=== PATIENT | male | born 1990 | race Two or more races ===

== ENCOUNTER 2024-01-06 10:55 | Outpatient (AMB) | payer OTHER, SELFPAY ==
[2024-01-06 10:57] VITALS: BP 114/78; PULSE 79; O2SAT 100; BMI 32.1
--- NOTE | 2024-01-06 10:57 | A.OFFPC_ITS ---
Vital Signs 01/06/24 10:57 Height 5 ft 10 in Weight 224 lb BMI 32.1 BP 114/78 Blood Pressure Location Lt brachial Position Sitting Pulse 79 Pulse Source Pulse Oximeter Pulse Oximetry (%) 100 Oxygen Delivery Method Room Air Intake Visit Reasons: establish care Order Entry Clerk Required: No Allergies No Known Allergies Allergy (Verified 01/06/24 11:14) Medication List - Last Reconciled 01/06/24 by Martha Rios PA-C No Known Home Meds Tobacco use date assessed: 01/06/24 Dental Screening Dental Screen Date: 01/06/24 Did you have a dental visit in the last 12 months?: Yes Did you have a dental problem in the last 6 months where you did not have access to dental care?: No Was dental information given to patient?: Patient has dentist HPI establish care HPI Details 33-year-old male coming to the office wi th the 1st time. 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 He continues to follow with Dr. Carrillo through [place] [facility] last seen last year and scheduled to see next month. He had cardiac echo and stress test last year as part of preoperative workup after clavicle fracture. He has been having chest pain with exertion which he has been evaluated for by his district or district office director and advised not to lift over 50 lbs. He has no acute concerns today. [facility] Surgical History (Updated 01/06/24 @ 12:07 by Martha Rios PA-C) Aortic valve replaced Hx of appendectomy Social History Housing: House Patient Tobacco Use Status: Never used Tobacco service: No Current occupational status: employed Cognitive needs: No Hearing needs: No Vision needs: No Questionnaire PHQ-9 Over the last 2 weeks, how often have you been bothered by any of the following problems? 1. Little interest or pleasure in doing things: not at all 2. Feeling down, depressed, or hopeless: not at all 3. Trouble falling or staying asleep, or sleeping too much: not at all 4. Feeling tired or having little energy: several days 5. Poor appetite or overeating: not at all 6. Feeling bad about yourself - or that you are a failure or have let yourself or your family down: not at all 7. Trouble concentrating on things, such as reading the newspaper or watching television: not at all 8. Moving or speaking so slowly that other people could have noticed. Or the opposite - being so fidgety or restless that you have been moving around a lot more than usual: not at all 9. Thoughts that you would be better off or of hurting yourself in some way: not at all Total score: 1 Depression Screening Interpretation: Negative Depression Screening Done: Yes 98523 - PHQ-9 Billing: Yes Source: Developed by Drs. Keron Jacobsen, Kirsten June, Mayank Lagunas and colleagues, with an educational shady from [employer]. Thrive Questionnaire Date Thrive assessed: 01/06/24 I am a: Patient What is your living situation today?: I have a steady place to live Within the past 12 months, did the food you bought not last and you didn't have the money to get more?: I choose not to answer this question Within the past 12 months, did you worry whether your food would run out before you got money to buy more?: I choose not to answer this question Do you have trouble paying for medicines?: No Do you have trouble getting transportation to medical appointments?: No Do you have trouble paying your heating and electricity bill?: No Do you have trouble taking care of your child, family member or friend?: No Do you have trouble with day-to-day activities such as bathing, preparing meals, shopping, managing finances, etc.?: No Are you currently unemployed and looking for a job?: No Are you interested in more education?: No Please select the resources that you would like help with: None Currently or been in a relationship where the following occur: I choose not to answer THRIVE Score: 0 AUDIT C Alcohol Use Questionnaire (AUDIT-C) 1. How often do you have a drink containing alcohol?: 2-4 times a month 2. How many drinks containing alcohol do you have on a typical day when you are drinking?: 1 or 2 3. How often do you have six or more drinks on one occasion?: Never Total Score: 2 MIKAEL-7 AMB Questionnaire MIKAEL-7 Date MIKAEL - 7 assessed: 01/06/24 Feeling nervous, anxious, or on edge: 0 = Not at all Not being able to stop or control worryin = Not at all Worrying too much about different things: 0 = Not at all Trouble relaxin = Not at all Being so restless that it is hard to sit still: 0 = Not at all Becoming easily annoyed or irritable: 0 = Not at all Feeling afraid as if something awful might happen: 0 = Not at all Total MIKAEL-7 score (0-4 normal; 5-9 mild; 10-14 moderate; 15-21 severe): 0 Source: Developed by Drs. Keron Jacobsen, Kirsten June, Mayank Lagunas and colleagues, with an educational shady from [place]. MIKAEL-7 Assessment Billing MIKAEL-7 Assessment Tool: MIKAEL-7 Assessment 97214 Review of Systems Const Denies body aches, Denies fatigue, Denies fever(s), Denies frequent falls, Denies headache(s) and Denies weakness Eyes Reports no additional complaints and Denies change in vision ENT Denies dysphagia, Denies dizziness, Denies facial pain, Denies headache(s), Denies nasal congestion and Denies odynophagia Card Denies chest pain, Reports chest pain with activity (with heavy activity), Denies syncope, Denies irregular heart rhythm, Denies leg edema, Denies lightheadedness and Denies dyspnea Resp Denies cough and Denies dyspnea GI Denies abdominal pain, Denies constipation, Denies dysphagia, Denies dyspepsia, Denies diarrhea, Denies nausea, Denies odynophagia and Denies vomiting Denies dysuria, Denies urinary frequency, Denies urinary hesitancy and Denies urinary urgency Musc Denies back pain and Denies myalgias Skin/Breast Reports system reviewed and no additional complaints, except as documented Neuro Denies dizziness, Denies syncope, Denies frequent falls, Denies headache(s) and Denies weakness Psych Reports no additional complaints Endo Denies fatigue Physical exam (Primary Care) Vital Signs: Last Vital Signs Pulse 79 01/06/24 10:57 BP 114/78 01/06/24 10:57 Pulse Ox 100 01/06/24 10:57 Oxygen Delivery Method Room Air 01/06/24 10:57 BMI result Body Mass Index 32.1 Tobacco/Smoking Status: Tobacco use Status Tobacco use date assessed 01/06/24 01/06/24 10:58 Patient Tobacco Use Status Never used Tobacco 01/06/24 10:58 PHQ-9: PHQ-9 Score PHQ-9: Total score 1 01/06/24 11:17 Depression Screening Interpretation: Negative Thrive Assessment: Date of Thrive Assessment Date Thrive assessed 01/06/24 01/06/24 10:58 Currently or been in a relationship where the following occur: I choose not to answer Const General: cooperative, healthy appearing, comfortable and no acute distress Orientation/consciousness: patient oriented x3 HENMT Head: Yes normocephalic Ears: hearing grossly normal bilaterally General nose exam: Normal external nose present Face and sinus: Yes normal facial exam and Yes sinuses nontender Mouth: Normal oral and palatal mucosa present and tongue normal Throat: Yes posterior oropharynx normal Eyes General: appearance normal, both eyes and all related structures Conjunctivae: conjunctivae normal Pupils: Equal, round and reactive pupils present EOM: EOMs intact bilaterally and No Nystagmus present Neck Neck: Yes full ROM and Yes no lymphadenopathy Chest Chest palpation & inspection: normal inspection of the chest Resp Effort & Inspection: normal respiratory effort Auscultation: clear to auscultation bilaterally, no crackles, no rales, no rhonchi and no wheezes Cardio Rate: regular rate Rhythm: regular rhythm Heart sounds: Murmur heart sound present systolic Peripheral pulses: radial pulses present and dorsalis pedis present GI Inspection: Yes normal to inspection and No Abdominal wall edema Palpation (GI): Soft to palpation, not firm and nontender Auscultation: normal bowel sounds Rectal Exam - Male: Yes deferred General: Yes no CVA tenderness Back/Spine/Pelvis Back: no CVA tenderness Skin General skin exam: no rashes or lesions noted Neuro General: patient oriented x3 Cranial nerves: Yes Equal, round and reactive pupils present, Yes Midline tongue present, Yes Ability to bilaterally elevate shoulders present and No Nystagmus present Gait exam (Neuro): Normal gait present Extrem General: Yes normal to inspection, Yes full ROM and No edema Psych Speech and movement: Normal speech and movement present Affect: normal affect Attitude: cooperative Insight: Good insight present (Psych) Judgement: Good judgement present (Psych) Coding Level of Care Code New Pt Prev Care 18-39yr(93674 Diagnoses Aortic valve replaced Z95.2 Annual physical exam Z00.00 Additional Codes MIKAEL-7 Assessment Billing - MIKAEL-7 Assessment Tool: MIKAEL-7 Assessment 87315 ([id number]) Assessment & Plan Assessment & Plan (1) Aortic valve replaced: Code(s): Z95.2 - Presence of prosthetic heart valve Category: Surgical Plan: Patient continues to follow with [place] district or district office director and has undergone stress test and echocardiogram. We will request these results. (2) Annual physical exam: Code(s): Z00.00 - Encounter for general adult medical examination without abnormal findings Category: Medical Plan: Patient is up-to-date on all recommended routine screenings and vaccinations for his age. Ordered for updated blood work and we will follow up in 1 year or sooner if new problems arise. Plan This note was constructed using voice recognition software. While every effort has been made to ensure accuracy and legislative correspondent, still areas may have been included sometimes these areas may affect the content or meeting of the given symptoms. Total time spent caring for the patient today was 30 minutes. This includes time spent before the visit reviewing the chart, time spent during the visit, and time spent after the visit and documentation. Orders: Orders Complete Blood Count Auto Diff Today Z00.00 - Encounter for general adult medical examination without abnormal findings Comprehensive Met. Panel Today Z00.00 - Encounter for general adult medical examination without abnormal findings TSH reflex Free T4 Today Z00.00 - Encounter for general adult medical examination without abnormal findings Vitamin B12 and Folate Today Z00.00 - Encounter for general adult medical examination without abnormal findings Lipid Panel Today Z00.00 - Encounter for general adult medical examination without abnormal findings Free T4 (Free Thyroxine) Today Z00.00 - Encounter for general adult medical examination without abnormal findings Vitamin D 25-OH (D2 and D3) Today Z00.00 - Encounter for general adult medical examination without abnormal findings
== END 2024-01-06 11:37 | disposition home or self-care (01) ==
LOC: HO.HMCH 10:56
DX: Z95.2 Presence of prosthetic heart valve (principal); Z00.00 Encounter for general adult medical examination without abnormal findings

== ENCOUNTER → 2024-01-06 10:55 | Outpatient (BNVA) | payer OTHER, SELFPAY | DX: Z00.00 Encounter for general adult medical examination without abnormal findings (principal); Z95.2 Presence of prosthetic heart valve | CPT/HCPCS: 96127 ==

== ENCOUNTER 2024-02-03 06:47 | Outpatient (REF) | payer OTHER, SELFPAY ==
[2024-02-03 07:02] LABS: MANUAL DIFF FLAG NO
[2024-02-03 07:50] LABS: Basophils Absolute Auto 0.1 X10*3/uL (0.0-0.2); Basophils Percent Auto 0.7 % (0-2); Eosinophils Absolute Auto 0.1 X10*3/uL (0.0-0.4); Eosinophils Percent Auto 0.7 % (0-4); Hematocrit 48.6 % (42.0-52.0); Hemoglobin 17.5 g/dl (14.0-18.0); Imm Gran Abs Auto 0.02 X10*3/uL (0.00-0.03); Imm Gran Pct Auto 0.3 % (0.0-0.4); Lymphocytes Absolute Auto 2.1 X10*3/uL (1.2-4.9); Lymphocytes Percent Auto 28.6 % (20-40); Mean Corpuscular Hemoglobin 30.5 pg (27.0-33.0); Mean Corpuscular Volume 84.7 fL (80.0-98.0); Mean Platelet Volume 10.3 fL (9.4-12.4); Monocytes Absolute Auto 0.8 X10*3/uL (0.1-1.2); Neutrophils Absolute Auto 4.3 x10*3/uL (2.0-8.3); Neutrophils Percent Auto 58.7 % (45-73); Platelet Count 259 X10*3/uL (160-400); Red Blood Count 5.74 X10*6/uL (4.60-5.80); White Blood Count 7.3 X10*3/uL (4.8-10.8)
[2024-02-03 08:44] LABS: Alanine Aminotransferase 76 U/L (0-40); Albumin Level 4.5 g/dL (3.5-5.0); Alkaline Phosphatase 88 U/L (39-117); Anion Gap 13 (12-20); Aspartate Amino Transferase 33 U/L (5-37); Bilirubin Total 0.9 mg/dL (0.0-1.0); Blood Urea Nitrogen 16 mg/dL (9-16); Calcium 9.4 mg/dL (8.4-10.2); Carbon Dioxide 28 mmol/L (22-29); Chloride 105 mmol/L (96-108); Cholesterol 161 mg/dL (<200); Estimated Glomerular Filt Rate > 60; Glucose Random 114 mg/dL (60-115); HDL Cholesterol 40 mg/dL (>40); LDL Cholesterol Calculated 94 mg/dL (<100); Potassium 4.5 mmol/L (3.3-5.1); Sodium 141 mmol/L (135-145); Total Protein 7.9 g/dL (6.5-8.0); Triglycerides 137 mg/dL (<150)
[2024-02-03 08:53] LABS: Free T4 (Free Thyroxine) 0.87 ng/dL (0.71-1.85)
[2024-02-03 09:03] LABS: Folate 15.2 ng/mL (> or = 4.0); Vitamin B12 614 pg/mL (200-900)
[2024-02-07 13:39] LABS: Vitamin D 25-OH, D2 <4 ng/mL; Vitamin D 25-OH, D3 15 ng/mL; Vitamin D 25-OH, Total 15 ng/mL (30-100)
== END 2024-02-03 06:48 | disposition home or self-care (01) ==
LOC: HO.LAB 06:47
DX: Z00.00 Encounter for general adult medical examination without abnormal findings (principal)
CPT/HCPCS: 36415; 80053; 80061; 82306; 82607; 82746; 84439; 84443; 85025

== ENCOUNTER 2024-03-16 07:10 | Outpatient (REF) | payer OTHER, SELFPAY ==
[2024-03-16 09:09] LABS: Alanine Aminotransferase 60 U/L (0-40); Albumin Level 4.5 g/dL (3.5-5.0); Alkaline Phosphatase 78 U/L (39-117); Aspartate Amino Transferase 32 U/L (5-37); Bilirubin Direct 0.3 mg/dL (0.0-0.5); Bilirubin Total 1.2 mg/dL (0.0-1.0); Total Protein 7.7 g/dL (6.5-8.0)
[2024-03-16 09:27] LABS: HBS Num1 36.91 mIU/mL (0-7.99); HBc Num1 0.08 S/CO (0.00-0.79); HBsAGNum1 0.37 S/CO (0.00-0.99); Hepatitis A Antibody IgM 0.19 Index (0-0.79); Hepatitis B Core Antibody Nonreactive (Nonreactive); Hepatitis B Surface Antigen Negative (Negative); ~Hepatitis A Antibody IgM Nonreactive (Nonreactive); ~Hepatitis B Surface Antibody REACTIVE (Nonreactive); ~Hepatitis C Antibody Nonreactive (Nonreactive)
== END 2024-03-16 07:11 | disposition home or self-care (01) ==
LOC: HO.LAB 07:10
DX: R79.89 Other specified abnormal findings of blood chemistry (principal)
CPT/HCPCS: 36415; 80076; 86704; 86706; 86709; 86803; 87340

== ENCOUNTER 2024-04-13 07:53 | Outpatient (REF) | payer OTHER, SELFPAY ==
--- OUTSIDE RECORDS SUMMARY | 2024-04-13 07:55 | XMS_ITS ---
Author Name [facility] Organization Unknown History of Medication Use Medication Directions Dispensed Refills Start Date End Date Stat us ibuprofen (MOTRIN) 200 MG tablet Take 2 tablets (400 mg total) by mouth 4 times daily (every 6 hours) as needed for mild pain. 10/22/2022 active acetaminophen (TYLENOL) 325 MG tablet Take 2 tablets (650 mg total) by mouth 4 times daily (every 6 hours) as needed for mild pain. 10/22/2022 active metoPROLOL TARTRATE (LOPRESSOR) 50 MG tablet Take 1 tablet (50 mg total) by mouth 2 (two) times a day. Take one tablet 12 [address] before your [address] scan, and one tablet 1-2 hours before it. 07/22/2022 10/22/2022 active Problems Problem Status Onset Date Problem Type Date of Resolution Source Open displaced fracture of distal phalanx of lesser toe of right foot with routine healing active 2022-07-31 ProblemAct [facility] CHD (congenital heart disease) active EncounterDiagnosisAct [facility] Thoracic ascending aortic aneurysm active 2022-07-14 ProblemAct [facility] Aortic valve regurgitation active 2022-10-22 ProblemAct [facility] Closed displaced fracture of shaft of right clavicle active 2022-07-19 ProblemAct [facility] Cardiomyopathy, unspecified type (HCC) active EncounterDiagnosisAct [facility] Immunizations Vaccine Date Source Lot Number Status Tdap 07/11/2022 [facility] [id number] completed
--- OUTSIDE RECORDS SUMMARY | 2024-04-13 07:55 | XMS_ITS | Clinical Summary ---
Author Organization [facility] Address [address] [place] [address] Care Team Providers Care Assistant Laboratory Director Name Role Phone Pcp, No Primary Care Provider UnavailChristopher Villanueva APRN Unavailable [phone] Lius Prakash MD Unavailable [phone] Ludwin Lopez MD Unavailable [phone] Allergies No known active allergies Medications Medication Sig Dispensed Refills Start Date End Date Status metoPROLOL SUCCINATE (TOPROL-XL) 25 MG 24 hr tabletIndications:Ane urysm of ascending aorta without rupture Take 1 tablet (25 mg total) by mouth daily. 90 tablet 1 10/22/2022 Active Active Problems Problem Noted Date Diagnosed Date Aortic valve regurgitation 10/22/2022 Open displaced fracture of d istal phalanx of lesser toe of right foot with routine healing 07/31/2022 Closed displaced fracture of shaft of right clav icle 07/19/2022 Assessment & Plan (07/19/2022 11:44 AM EDT): Surgery planned on 07-[address] Prakash for ORIF right clavicle Thoracic ascending aortic aneurysm 07/14/2022 Assessment & Plan (07/19/2022 11:44 AM EDT): Cardiology * pending apt Immunizations Name Administration Dates Next Due Tdap 07/11/2022 Family History * Patient is adopted Medical History Relation Name Comments No Known Problems Father No Known Problems Mother Relation Name Status Comments Father Mother Social History Tobacco Use Types Packs/Day Years Used Date Smoking Tobacco: Never Smokeless Tobacco: Never Tobacco Cessation:Counseling Given: Not Answered Alcohol Use Standard Drinks/Week Comments Yes 7 (1 standard drink = 0.6 oz pur e alcohol) Social AUDIT-C Answer Date Recorded Q1: How often do you have a drink containing alcohol? 4 or more times a week 07/19/2022 Q2: How many drinks containi ng alcohol do you have on a typical day when you are drinking? 1 or 2 Q3: How often do you have si x or more drinks on one occasion? Never 07/19/2022 Sex and Gender Information Value Date Recorded Sex Assigned at Male 07/11/2022 9:41 PM EDT Gender Identity Male 07/11/2022 9:41 PM EDT Sexual Orientation Heterosexual (straight) 07/11 9:41 PM EDT Last Filed Vital Signs Vital Sign Reading Time Taken Comments Blood Pressure 113/83 10/22/2022 8:35 AM EDT Pulse 84 10/22/2022 8:35 AM EDT Temperature 36.4 ??C (97.6 ??F) 07/19/2022 11:06 AM E DT Respiratory Rate 16 07/19/2022 11:06 AM EDT Oxygen Saturation 97% 10/22/2022 8:35 AM EDT Inhaled Oxygen Concentration - - Weight 97.3 kg (214 lb 8 oz) 10/22/2022 8:35 AM EDT Height 177.8 cm (5' 10 ) 10/22/2022 8:35 AM EDT Body Mass Index 30.78 10/22/2022 8:35 AM EDT Plan of Treatment Health Maintenance Due Date Last Done Comments Hepatitis C Virus Screening 1992 HIV Screening 2005 Hepatitis B Vaccines (1 of 3 - 19+ 3-dose series) 11/20/2011 Pneumococcal Vaccine: Pediatric (0-5 Years) and At-Risk Patients (6 to 49 Years) (1 of 2 - PCV) 11/20/2011 Influenza Vaccine 10/06/2023 COVID-19 Vaccine ( - 2023-2 5 season) 2023 04/21/2021, 03/24/2021 DTaP/Tdap/Td Vaccines (2 - T d or Tdap) 07/11/2032 07/11/2022 HPV Vaccines Aged Out No longer eligi ble based on patient's age to complete this topic Care Teams Assistant Laboratory Director Relationship Specialty Start Date End Date Pcp, No PCP - General General Medicine 07/12/22 Christopher Coelho APRN [address] [place] [address] Nurse Practitioner Cardiovascular Disease 07/19/22 Luis Prakash MD [address] [place] [address] Surgery, Orthopedic 07/19/22 Ludwin Lopez MD [address] [place] [address] Physician Cardiovascular Disease 12/15/22
--- OUTSIDE RECORDS SUMMARY | 2024-04-13 07:55 | XMS_ITS | Clinical Summary ---
Author Organization [facility] [address] [address] Phone Care Team Providers Care Technology Support Analyst Name Role Phone Unavailable Primary Care Provider Unavailabl e Social History Tobacco Use Types Packs/Day Years Used Date Smoking Tobacco: Never Assessed Sex and Gender Information Value Date Recorded Sex Assigned at Not on file Legal Sex Male 4:16 PM EDT Gender Identity Not on file Sexual Orientation Not on file Plan of Treatment Health Maintenance Due Date Last Done Comments HIV screening 2005 Hepatitis C screening 2010 Influenza vaccine 10/06/2023 Covid-19 vaccine series (2023- season) 2023 Tetanus adult (Td q 10,TDAP once) 07/11/2032 023 RSV Discussion (1 - 1-dose 7 5+ series) 11/20/2067 Meningococcal Vaccine Aged Out No erica rob eligible based on patient's age to complete this topic Pneumococcal Vaccine Aged Out No long er eligible based on patient's age to complete this topic Insurance [facility]
--- OUTSIDE RECORDS SUMMARY | 2024-04-13 07:55 | XMS_ITS | Referral Summary ---
Author Organization [facility] Address [address] [place] [address] Care Team Providers Care Tree Tapping Laborer Name Role Phone Self, Referred Primary Care Provider Unavailabl e Source Comments Please note that some or all of the patient's information could have additional privacy protections. State laws allow health care providers to render certain types of treatment to minors without parental consent. Please do not assume that this information can be shared solely by obtaining just the consent of the patient's parent/guardian. Please determine if all or part of the patient's care was rendered without parent/guardian involvement. And, if so, obtain the minor's consent prior to disclosure.[facility] Encounters Date Type Department Care Team Description 02/07/2024 2:00 PM EST Office Visit [facility] Department of Cardiology [address] [place] [phone] Isael Carrillo MD Nonrheumatic aortic valve insufficiency (Primary Dx); CHD (congenital heart disease) 02/07/2024 12:39 PM EST - 02/07/2024 11:59 PM EST Hospital Encounter [facility] Department of Cardiology [address] [place] [phone] CHD (congenital heart disease) Discharge Disposition: Home or Self Care from Last 3 Months Allergies No known active allergies Medications No known medications Active Problems Patient Care Coordination No te Formatting of this note migh t be different from the original. Center for Care Coordination: Kassidy DAWSON, RN / Referred by [facility]. Assisted patient is finding local dentists and primary care providers that accept his insurance. Problem Noted Date Diagnosed Date Aortic stenosis 11/09/2022 Social History Tobacco Use Types Packs/Day Years Used Date Smoking Tobacco: Never Passive Smoke Exposure: Never Smokeless Tobacco: Never Other Needs Answer Date Recorded Anything else about your child you'd like help w ith? Not on file 11/18/2022 Share good news about positive changes: Not on f ile 11/18/2022 Sex and Gender Information Value Date Recorded Sex Assigned at Not on file Legal Sex Male 11:56 AM EDT Gender Identity Not on file Sexual Orientation Not on file Last Filed Vital Signs Vital Sign Reading Time Taken Comments Blood Pressure 132/79 02/07/2024 12:48 PM EST Pulse 86 02/07/2024 12:48 PM EST Temperature - - Respiratory Rate - - Oxygen Saturation 97% 02/07/2024 12: 48 PM EST Inhaled Oxygen Concentration - - Weight 104.6 kg (230 lb 9.6 oz) 024 12:48 PM EST Height 179.5 cm (5' 10.67 ) 02/07/2024 12:48 PM EST Body Mass Index 32.46 02/07/2024 12:48 PM EST Plan of Treatment Upcoming Encounters Date Type Department Care Team (Late st Contact Info) Description 04/20/2024 9:30 AM EST Appointment [facility] Diagnostic Imaging Services [address] [phone] Isael Carrillo MD [address] [place] [address] 05/08/2024 1:00 PM EST Office Visit [facility] Department of Cardiology [address] [facility] [address] [place] [address] Isael Carrillo MD [address] [place] [address] Procedures Procedure Name Priority Date/Time Associated Diagnosis Comments ECHO CONGENITAL 2D COMPLETE Routine 02/07/2024 1:49 PM EST CHD (congenital heart disease) EKG 12-LEAD Routine 02/07/2024 1:47 PM EST CHD (congenital heart disease) from Last 3 Months Results * ECHO CONGENITAL 2D COMPLETE (02/07/2024 1:49 PM EST) AI P1/2t 496.7 msec [facility] AI dec slope 140.9 cm/sec^2 [facility] AI max PG 22.8 mmHg [facility] AI max moises 238.9 cm/sec [facility] Ao V2 max moises 118.1 cm/sec [facility] Ao max PG 5.6 mmHg [facility] Ao max PG (full) 0.35 mmHg [facility] Ao root diam(2D) (vs. BSA(Haycock)) 4.5 cm [facility] AoV duyen area (vs. BSA(Haycock)) 7.4 cm^2 [facility] AoV duyen diam(2D) (vs.BSA(Haycoc k)) 3.1 cm [facility] BSA 2.2 m^2 [facility] BSA(Haycock) 2.3 m^2 [facility] BMI 32.5 kilograms/ m^2 [facility] Diastolic Pressure 79 mmHg [facility] Height (metric) 179.5 cm [facility] Weight (metric) 104.6 kg [facility] Systolic Pressure 132 mmHg [facility] EDV(bullet)(4c h) (vs.BSA(Haycoc k)) 195.7 ml [facility] EF(bullet)(4ch ) (vs.Age) 54.8 % [facility] ESV(bullet)(4c h) (vs.BSA(Haycoc k)) 88.5 ml [facility] FAC sax 45.5 % [facility] FS lax(4ch) 17 % [facility] FS(MM) (vs. Age) 42.6 % [facility] IVSd(MM)(vs. BSA(Haycock)) 0.84 cm [facility] IVSs(MM)(vs. BSA(Haycock)) 1.3 cm [facility] LPA diam 1.5 cm [facility] LPA max PG 12.9 mmHg [facility] LPA max moises 179.6 cm/sec [facility] LVOT max moises 114.3 cm/sec [facility] LV mass(C)d(MM) (vs.BSA (Haycock)) 177.6 grams [facility] LVOT peak grad 5.2 mmHg [facility] LV sphericity(vs. Age) 0.62 [facility] LV Thick/Dimen (vs. Age) 0.14 [facility] LVAd sax max 25.8 cm^2 [facility] LVAs sax max 14 cm^2 [facility] LVIDd(MM)(vs. BSA(Haycock)) 5.7 cm [facility] LVIDs(MM)(vs. BSA(Haycock)) 3.3 cm [facility] LVLd apical(4ch) 9.1 cm [facility] LVLs apical(4ch) 7.6 cm [facility] LVPWd(MM)(vs. BSA(Haycock)) 0.82 cm [facility] LVPWs(MM)(vs. BSA(Haycock)) 1.6 cm [facility] Lat Peak A' moises 8.3 cm/sec [facility] Lat Peak E' Moises 14.5 cm/sec [facility] MV A max moises 62.2 cm/sec [facility] MV E max moises 116.4 cm/sec [facility] MV E/A 1.9 [facility] MV V2 VTI 26.1 cm [facility] MV V2 max 112.9 cm/sec [facility] MV V2 mean 61.4 cm/sec [facility] MV annudiam(4ch) (vs.BSA(Haycoc k)) 2.4 cm [facility] MV max PG 5.1 mmHg [facility] MV mean PG 1.7 mmHg [facility] Med Peak A' Moises 10.2 cm/sec [facility] Med Peak E' Moises 9.6 cm/sec [facility] PV VTI 60.5 cm [facility] PV max moises 252.2 cm/sec [facility] PV mean moises 179 cm/sec [facility] PV max PG 25.4 mmHg [facility] PA max PG (full) 17.2 mmHg [facility] PV mean grad 14.4 mmHg [facility] PI end-d moises 99.1 cm/sec [facility] RPA diam 2.4 cm [facility] RPA max PG 9.9 mmHg [facility] RPA max moises 157.6 cm/sec [facility] RVOT max 143.9 cm/sec [facility] CARD RVOT max PG 8.3 mmHg [facility] CARD SV(bullet) (4ch) (vs.BSA(Haycoc k)) 107.2 ml [facility] CARD TAPSE_phl 1.1 cm [facility] CARD TV duyen diam(4ch) 2.8 cm [facility] CARD asc Ao max PG 7.2 mmHg [facility] CARD asc Ao max moises 134.1 cm/sec [facility] CARD asc Aorta(2D)(vs. BSA(Haycock)) 5.2 cm [facility] CARD desc Ao max PG 6.7 mmHg [facility] CARD desc Ao max moises 129.5 cm/sec [facility] CARD FS(MM) (vs. Age) Z-SCORE 1.8651 [facility] CARD IVSd(MM)(vs. BSA(Haycock)) Z-SCORE -1.25956 [facility] CARD IVSs(MM)(vs. BSA(Haycock)) Z-SCORE -1.09460 [facility] CARD LV mass(C)d(MM) (vs.BSA (Haycock)) Z-SCORE -1.15141 [facility] CARD LVIDd(MM)(vs. BSA(Haycock)) Z-SCORE 0.602762 [facility] CARD LVIDs(MM)(vs. BSA(Haycock)) Z-SCORE -0.310903 [facility] CARD LVPWd(MM)(vs. BSA(Haycock)) Z-SCORE -1.38135 [facility] CARD Anatomical Region Laterality Modality Ultrasound 02/07/2024 12:5 4 PM EST us Isael Freddie Carrillo MD CV CARDIO DIAG ORDERABLES Fi nal Result * EKG 12 lead (02/07/2024 1:47 PM EST) 02/07/2024 1:47 PM EST Narrative [facility]IP EPIPHANY - 02/10/2024 10:17 AM EST ?[facility] ?[address] [place] ??[address] ? Test Date: ?2024-02-07 Pat Name: ? GABINO CANADA RODRIGUEZDepartment: ?? CARD HTFD ?Room: ? Gender: ? Male ? Car Construction Superintendent: ?? [id number] : ?1990 ? Requested By: ISAEL DODEJA Order Number: [id number] ? Reading MD: ?? Isael Dodeja ? Measurements Intervals ?[place] ? Rate: ? 75 ? P: ?44 FL: ? 159 ?QRS: ?47 QRSD: ? 100 ?T: ?61 QT: ? 361 ? QTc: ?404 ? Interpretive Statements Normal Sinus Rhythm Normal axes, intervals, and voltages No pre-excitation QTc within normal limits Electronically Signed On 02-10-2024 10:17:24 EST by Isael Carrillo us Isael Carrillo MD ECG ORDERABLES Final Result [facility] EPIPHANY from Last 3 Months Insurance CHOICE PLUS Care Teams Tree Tapping Laborer Relationship Specialty Start Date End Date Self, Referred [address] [place] [address] PCP - General 11/26/22
--- OUTSIDE RECORDS SUMMARY | 2024-04-13 07:55 | XMS_ITS | Clinical Summary ---
Author Organization [facility] Address [address] [place] [address] Care Team Providers Care Lockstitcher Name Role Phone Self, Referred Primary Care [...] so, obtain the minor's consent prior to disclosure.[facility] Allergies No known active allergies Medications No known medications Active Problems Patient Care Coordination No te Formatting of this note migh t be different from the original. Center for Care Coordination: Kassidy DAWSON, RN / Referred by [facility]. Assisted patient is finding local dentists and primary care providers that accept his insurance. Problem Noted Date Diagnosed Date Aortic stenosis 11/09/2022 Encounters Date Type Department Care Team Description 02/07/2024 2:00 PM EST Office Visit [facility] Department of Cardiology [address] [place] [phone] Isael Carrillo MD Nonrheumatic aortic valve insufficiency (Primary Dx); CHD (congenital heart disease) 02/07/2024 12:39 PM EST - 02/07/2024 11:59 PM EST Hospital Encounter [facility] Department of Cardiology [address] [place] [phone] CHD (congenital heart disease) Discharge Disposition: Home or Self Care from Last 3 Months Social History Tobacco Use Types Packs/Day Years [...] Info) Description 04/20/2024 9:30 AM EST Appointment [facility] Diagnostic Imaging Services [address] [phone] Isael Carrillo MD [address] [place], [place] [phone] 05/08/2024 1:00 PM EST Office Visit [facility] Department of Cardiology [address] [phone] Isael Carrillo MD [address] [place] [address] Health Maintenance Due Date Last Done Comments DTaP/TDAP/TD VACCINES (1 - Tdap) 11/20/1999 ADOLESCENT HIV SCREENING 2005 COVID-19 Vaccine (2023-2 5 season) 2023 INFLUENZA (#1) 2023 NIRSEVIMAB VACCINES UNDER 8 MONTHS Aged Out No longer eligible based on patient's age to complete this topic Procedures Procedure Name Priority Date/Time Associated Diagnosis [...] cm/sec [facility] RVOT max 143.9 cm/sec [facility] RVOT max PG 8.3 mmHg [facility] SV(bullet) (4ch) (vs.BSA(Haycoc k)) 107.2 ml [facility] TAPSE_phl 1.1 cm [facility] TV duyen diam(4ch) 2.8 cm [facility] asc Ao max PG 7.2 mmHg [facility] asc Ao max moises 134.1 cm/sec [facility] asc Aorta(2D)(vs. BSA(Haycock)) 5.2 cm [facility] desc Ao max PG 6.7 mmHg [facility] desc Ao max moises 129.5 cm/sec [facility] FS(MM) (vs. Age) Z-SCORE 1.8651 [facility] CARD IVSd(MM)(vs. BSA(Haycock)) Z-SCORE -1.48109 [facility] IVSs(MM)(vs. BSA(Haycock)) Z-SCORE -1.60992 [facility] CARD LV mass(C)d(MM) (vs.BSA (Haycock)) Z-SCORE -1.95354 [facility] LVIDd(MM)(vs. BSA(Haycock)) Z-SCORE 0.054442 [facility] CARD LVIDs(MM)(vs. BSA(Haycock)) Z-SCORE -0.230121 [facility] CARD LVPWd(MM)(vs. BSA(Haycock)) Z-SCORE -1.81398 [facility] Anatomical Region Laterality Modality Ultrasound 02/07/2024 12:5 4 PM EST us Isael Freddie Carrillo MD CV CARDIO DIAG ORDERABLES Fi nal Result * EKG 12 lead (02/07/2024 1:47 PM EST) 02/07/2024 1:47 PM EST Narrative CCIP EPIPHANY - 02/10/2024 10:17 AM EST ?[facility] ?[address] [facility], [place] ??[address] ? Test Date: ?2024-02-07 Pat Name: ? GABINO CANCHOLADepartment: ?? CARD HTFD ?Room: ? Gender: ? Male ? Company Marker: ?? [id number] : ?1990 ? Requested By: ISAEL DODEJA Order Number: [id number] ? Reading MD: ?? Isael Dodeja ? Measurements Intervals ?[place] ? Rate: ? 75 ? P: ?44 ND: ? 159 ?QRS: ?47 QRSD: ? 100 ?T: ?61 QT: ? 361 ? QTc: ?404 ? Interpretive Statements Normal Sinus Rhythm Normal axes, intervals, and voltages No pre-excitation QTc within normal limits Electronically Signed On 02-10-2024 10:17:24 EST by Isael Carrillo us Isael Carrillo MD ECG ORDERABLES Final Result [facility] EPIP[facility]ANY from Last 3 Months Insurance CHOICE PLUS Care Teams Lockstitcher Relationship Specialty Start Date End Date Self, Referred [address] [place] [address] PCP - General 11/26/22
--- OUTSIDE RECORDS SUMMARY | 2024-04-13 07:56 | XMS_ITS | Encounter Summary ---
Author Organization [facility] Address [address] [place] [address] Care Team Providers Care Rn Child Name Role Phone Pcp, No Primary Care Provider UnavailChristopher Villanueva APRN Unavailable Luis Prakash MD Unavailable [phone] Ludwin Lopez MD Unavailable [phone] Encounter Details Date Type Department Care Team (Late st Contact Info) Description 07/22/2022 Scanned Document [facility] [place] at [address] [address] Provider, Generic Social History Tobacco Use Types Packs/Day Years Used Date Smoking Tobacco: Never Smokeless Tobacco: Never Alcohol Use Standard Drinks/Week Comments Yes 7 [...] Orientation Heterosexual (straight) 07/11 9:41 PM EDT COVID-19 Exposure Response Date Recorded In the last 10 days, have yo u been in contact with someone who was confirmed or suspected to have Coronavirus/COVID-19? No / Unsure 07/22/2022 8:39 AM EDT documented as of this encounter Plan of Treatment Not on file documented as of this encounter Procedures Procedure Name Priority Date/Time Associated Diagnosis Comments BOOKING SHEETS-SCAN 07/22/2022 documented in this encounter Results * BOOKING SHEETS-SCAN (07/22/2022) Narrative 07/22/2022 Ordered by an unspecified provider. Generic Provider HX AMB PROCEDURES documented in this encounter Visit Diagnoses Not on filedocumented in this encounter Care Teams Rn Child Relationship Specialty Start Date End Date Pcp, No PCP - General General Medicine 07/12/22 Christopher Coelho APRN [address] [place] [address] Nurse Practitioner Cardiovascular Disease 07/19/22 Luis Prakash MD [address] [place] [address] Surgery, Orthopedic 07/19/22 Ludwin Lopez MD [address] [place] [address] Physician Cardiovascular Disease 12/15/22 documented as of this encounter
== END 2024-04-13 07:54 | disposition home or self-care (01) ==
LOC: HO.US 07:53
DX: R79.89 Other specified abnormal findings of blood chemistry (principal)

== ENCOUNTER → 2024-04-13 08:13 | Outpatient (BNV) | payer OTHER, SELFPAY | PROVIDERS: Visit Provider Radiology Diagnostic Radiology | DX: R79.89 Other specified abnormal findings of blood chemistry (principal); K80.20 Calculus of gallbladder without cholecystitis without obstruction | CPT/HCPCS: 76700 ==

== ENCOUNTER 2025-01-11 10:03 | Outpatient (AMB) | payer OTHER, SELFPAY ==
--- OUTSIDE RECORDS SUMMARY | 2025-01-08 14:32 | XMS_ITS | Encounter Summary ---
Author Organization [facility] [address] [place] [address] Care Team Providers Care Guest Services Name Role Phone Self, Referred Primary Care Provider Unavailabl e Reason for Visit * CFC AUTH/CERT (Routine) - Closed Specialty Diagnoses / Procedures Referred By Contac t Referred To Contact Cardiology Diagnoses CHD Procedures ECHO Self, Referred [address] [place] [phone] [facility] Department of Cardiology [address] [place] [address] Phone: tel: fax: Referral ID Status Reason Start Date Expiration Date Visits Re quested Visits Authorized [id number] Closed 01/08/2025 03/06/2025 1 1 Encounter Details Date Type Department Care Team (Latest Contact Info) Description 01/08/2025 2:32 PM EST Hospital Encounter [facility] Department of Cardiology [address] [place] [phone] CHD (congenital heart disease) Social History Tobacco Use Types Packs/Day Years Used Date Smoking Tobacco: Never Passive Smoke Exposure: Never Smokeless Tobacco: Never Sex and Gender Information Value Date Recorded Sex Assigned at Not on file Legal Sex Male 11:56 AM EDT Gender Identity Not on file Sexual Orientation Not on file documented as of this encounter Plan of Treatment Upcoming Encounters Date Type Department Care Team ([facility] Contact Info) Description 07/09/2025 3:00 PM EDT Appointment [facility] Department of Cardiology [address] [place] [address] 07/09/2025 4:00 PM EDT Office Visit [facility] Department of Cardiology [address] [place] [address] [address] [place] [address] Isael Carrillo MD [address] [place] [phone] documented as of this encounter Procedures Procedure Name Priority Date/Time Associated Diagnosis Comments ECHO CONGENITAL 2D COMPLETE Routine 01/08/2025 4:27 PM EST CHD (congenital heart disease) documented in this encounter Results * ECHO CONGENITAL 2D COMPLETE (01/08/2025 4:27 PM EST) Ao V2 max moises 115.6 cm/sec [facility] Ao max PG 5.3 mmHg [facility] Ao max PG (full) 1.8 mmHg [facility] Ao root area 12.8 cm^2 [facility] Ao root diam 4 cm [facility] Ao root diam(2D) (vs. BSA(Haycock)) 4.6 cm [facility] AoV duyen area (vs. BSA(Haycock)) 6.4 cm^2 [facility] AoV duyen diam(2D) (vs.BSA(Haycoc k)) 2.9 cm [facility] BSA 2.2 m^2 [facility] BSA(Haycock) 2.3 m^2 [facility] BMI 33.1 kilograms/ m^2 [facility] Height (metric) 177.6 cm [facility] Weight (metric) 104.3 kg [facility] EDV(bullet)(4c h) (vs.BSA(Haycoc k)) 207.2 ml [facility] EF(bullet)(4ch ) (vs.Age) 54.3 % [facility] ESV(bullet)(4c h) (vs.BSA(Haycoc k)) 94.6 ml [facility] FAC sax 46.9 % [facility] FS lax(4ch) 14 % [facility] FS(MM) (vs. Age) 29.2 % [facility] IVSd(MM)(vs. BSA(Haycock)) 0.98 cm [facility] IVSs(MM)(vs. BSA(Haycock)) 1.3 cm [facility] LA dimension 3.4 cm [facility] LA/Ao 0.84 [facility] LPA diam 1.8 cm [facility] LPA max PG 11.2 mmHg [facility] LPA max moises 167.4 cm/sec [facility] LVOT max moises 93.9 cm/sec [facility] LV mass(C)d(MM) (vs.BSA (Haycock)) 253.9 grams [facility] LVOT peak grad 3.5 mmHg [facility] LV sphericity(vs. Age) 0.71 [facility] LV Thick/Dimen (vs. Age) 0.14 [facility] LVAd sax max 27.9 cm^2 [facility] LVAs sax max 14.8 cm^2 [facility] LVIDd(MM)(vs. BSA(Haycock)) 6.4 cm [facility] LVIDs(MM)(vs. BSA(Haycock)) 4.5 cm [facility] LVLd apical(4ch) 8.9 cm [facility] LVLs apical(4ch) 7.7 cm [facility] LVPWd(MM)(vs. BSA(Haycock)) 0.91 cm [facility] LVPWs(MM)(vs. BSA(Haycock)) 1.5 cm [facility] Lat Peak A' moises 8.1 cm/sec [facility] Lat Peak E' Moises 13.8 cm/sec [facility] MV A max moises 63.4 cm/sec [facility] MV E max moises 100.4 cm/sec [facility] MV E/A 1.6 [facility] MV annudiam(4ch) (vs.BSA(Haycoc k)) 2.8 cm [facility] Med Peak A' Moises 6.3 cm/sec [facility] Med Peak E' Moises 7.5 cm/sec [facility] RPA diam 2.2 cm [facility] RPA max PG 5.2 mmHg [facility] RPA max moises 113.9 cm/sec [facility] RVOT max 92.4 cm/sec [facility] RVOT max PG 3.4 mmHg [facility] SV(bullet) (4ch) (vs.BSA(Haycoc k)) 112.5 ml [facility]ARD TAPSE_phl 0.74 cm [facility] TR max PG 27.3 mmHg [facility] TR max moises 261.2 cm/sec [facility] CARD TV duyen diam(4ch) 3.5 cm [facility] asc Ao max PG 4.5 mmHg [facility] asc Ao max moises 105.6 cm/sec [facility] asc Aorta(2D)(vs. BSA(Haycock)) 5.2 cm [facility] desc Ao max PG 6 mmHg [facility] desc Ao max moises 122 cm/sec [facility] CARD FS(MM) (vs. Age) Z-SCORE -1.09543 [facility] CARD IVSd(MM)(vs. BSA(Haycock)) Z-SCORE -0.250828 [facility] CARD IVSs(MM)(vs. BSA(Haycock)) Z-SCORE -0.09159 [facility] CARD LV mass(C)d(MM) (vs.BSA (Haycock)) Z-SCORE 0.880896 [facility] CARD LVIDd(MM)(vs. BSA(Haycock)) Z-SCORE 1.38047 [facility] CARD LVIDs(MM)(vs. BSA(Haycock)) Z-SCORE 2.96350 [facility] CARD LVPWd(MM)(vs. 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 Stable severe ascending aorta dilatation measures 5.2 cm. Severely dilated aortic root measures 4.6 cm. Trileaflet aortic valve with mild-moderate insufficiency. No stenosis. Echo bright main pulmonary artery suggestive of an RV to PA conduit which appears calcified. Peak PG ~ 16 mmHg. Trivial insufficiency. Normal left ventricle size. Low normal left ventricular systolic function. LVEF 54% by 2D bullet method. The right ventricle pressure estimate is 27 mmHg above the right atrial pressure in systole. Mildly dilated right ventricle. Qualitatively normal right ventricular function. No pericardial effusion. 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 Stable severe ascending aorta dilatation measures 5.2 cm. Severely dilated aortic root measures 4.6 cm. Trileaflet aortic valve with mild-moderate insufficiency. No stenosis. Echo bright main pulmonary artery suggestive of an RV to PA conduitwhich appears calcified. Peak PG ~ 16 mmHg. Trivial insufficiency. Normal left ventricle size. Low normal left ventricular systolicfunction. LVEF 54% by 2D bullet method. The right ventricle pressure estimate is 27 mmHg above the right atrial pressure in systole. Mildly dilated right ventricle. Qualitatively normal right ventricular function. No pericardial effusion. us Isael Freddie Carrillo MD CV CARDIO DIAG ORDERABLES Fi nal Result documented in this encounter Visit Diagnoses Diagnosis CHD (congenital heart disease) Unspecified congenital anomaly of heart documented in this encounter Care Teams Guest Services Relationship Specialty Start Date End Date Self, Referred [address] [place] [address] PCP - General 11/26/22 documented as of this encounter
--- OUTSIDE RECORDS SUMMARY | 2025-01-08 16:00 | XMS_ITS | Encounter Summary ---
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 the team consensus was to continue to monitor him closely with follow-up echo images every 6 months and an MRI once a year to assess for any further interval changes in his aortic regurgitation, ventricular volumes, size ofhis aortic dimensions. Given his mildly decreased LV function on ECHO today, I will switch his Losartan 25 mg to Entresto 24-26mg BID, continue metoprolol XL 25 mg for his AI and dilated ascending aorta. Plan for follow up cardiac MRI in 2025 to reassess biventricular size, function, aortic valve and aortic dimensions I have requested my front office staff to reach out to the hospital in [place], [place] to seeif they have any additional contacts they could use to potentially get records. follow-up in 6 months with an echo and EKG. Plan for repeat CMR next year. Medications: 1. ASA 81 mg daily 2. Stop losartan x48 hours then start entresto 24-26 mg BID 3. Metoprolol XL 25 mg daily Routine Cardiac Recommendations: 1. Continue general health maintenance with your primary care physician. 2. Based on the 2007 [place] [employer] guidelines, subacute bacterial endocarditis prophylaxis IS required during procedures felt to be at increased risk of bacteremia. Of course, excellent dental hygiene is mandatory for this patient and we encourage routine dental care. 3. Advised avoiding heavy lifting. Follow-Up Recommendations 1. follow-up in 6 months with an echo and EKG Thank you for allowing me to participate in [facility]. Please contact me with any questions. Including direct patient time, pre/post visit work, documenting and performing tasks for this visit, I spent a total of 46 minutes on the calendar day of the visit. Patient Instructions Your echocardiogram today was stable with similar finding as your prior. Please switch from Losratan 25 mg daily to entresto 24-26 mg BID. 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 Isael Carrillo MD, FACC Contracting Executive, Adult Congenital Heart Disease Design Studio Consultant, Internal Medicine & Pediatrics Division of Cardiovascular Medicine [facility] Adult Congenital Heart (CTACH) Program [phone] documented in this encounter Plan of Treatment Upcoming Encounters Date Type Department Care Team (Late st Contact Info) Description 07/09/2025 3:00 PM EDT Appointment [facility] Department of Cardiology [address] [place] [phone] 07/09/2025 4:00 PM EDT Office Visit [facility] Department of Cardiology [address] [place] [phone] Isael Carrillo MD [address] [place] [address] [phone] documented as of this encounter Procedures Procedure Name Priority Date/Time Associated Diagnosis Comments EKG 12-LEAD Routine 01/08/2025 2:31 PM EST CHD (congenital heart disease) documented in this encounter Results * EKG 12 lead (01/08/2025 2:31 PM EST) 01/08/2025 4:25 PM EST Impressions [facility] - 01/08/2025 8:35 PM EST Normal Sinus Rhythm Normal axes, intervals, and voltages No pre-excitation QTc within normal limits Narrative [facility] - 01/08/2025 8:35 [place] [address] Test Date: 2025-01-08 Pat Name: GABINO Ornelaspartment: TEDDY HTFD Room: Gender: Male 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: MP : 1990 Requested By: ISAEL CARRILLO Order Number: [id number] Reading MD: Isael Carrillo Measurements Intervals [place] Rate: 70 P: 36 [place]: 168 QRS: 33 QRSD: 101 T: 37 QT: 401 QTc: 433 Electronically Signed On 01-08-2025 20:35:28 EST by Isael Carrillo Procedure Note Isael Carrillo MD - 01/08/2025 [place] [address] Test Date: 2025-01-08 Pat Name: GABINO CANADA Cecipartment: TEDDY HTFD Room: Gender: Male 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: : 1990 Requested By: ISAEL CARRILLO Order Number: [id number] Reading MD: Isael Carrillo Measurements Intervals [place] Rate: 70 P: 36 [place]: 168 QRS: 33 QRSD: 101 T: 37 QT: 401 QTc: 433 Electronically Signed On 01-08-2025 20:35:28 EST by Isael Carrillo IMPRESSION Normal Sinus Rhythm Normal axes, intervals, and voltages No pre-excitation QTc within normal limits us Isael Carrillo MD ECG ORDERABLES Final Result KAMLESH HARDWICK documented in this encounter Visit Diagnoses Diagnosis CHD (congenital heart disease) Unspecified congenital anomaly of heart documented in this encounter Care Teams Acetylene Cylinder Packing Mixer Relationship Specialty Start Date End Date Self, Referred [address] [place] [address] PCP - General 11/26/22 documented as of this encounter
[2025-01-11 10:07] VITALS: BP 130/90; PULSE 74; TEMP 36.3; O2SAT 99; BMI 31.2
--- NOTE | 2025-01-11 10:07 | MHC.PC.OV ---
Vital Signs 01/11/25 10:07 01/11/25 10:42 Height 5 ft 11.65 in Weight 227 lb 8 oz BMI 31.2 BP 130/90 H 130/86 Blood Pressure Location Lt brachial Lt brachial Position Sitting Sitting Pulse 74 Pulse Source Pulse Oximeter Temp 97.3 F Temp Source Temporal Artery Scan Pulse Oximetry (%) 99 Oxygen Delivery Method Room Air Intake Visit Reasons: Annual Exam Collection Supervisor Required: No Allergies No Known Allergies Allergy (Verified 01/11/25 10:25) Medication List - Last Reconciled 01/11/25 by Martha Rios PA-C No Known Home Meds Tobacco use date assessed: 01/06/24 Dental Screening Dental Screen Date: 01/06/24 Did you have a dental visit in the last 12 months?: No Did you have a dental problem in the last 6 months where you did not have access to dental care?: No Was dental information given to patient?: Patient has dentist HPI Annual Exam HPI Details 34-year-old male with past medical history of fatty liver, cholelithiasis last seen 01/2024 coming in for annual exam. Presenting for an annual wellness visit. He has a history of hepatic steatosis, which is being managed with diet and exercise. His liver function tests showed improvement after retesting last year, and his weight has been stable. The patient has a history of an aortic valve replacement and is followed by a french folding machine operator every six months. He had a negative stress test last year, and his french folding machine operator plans to order an MRI and another echocardiogram next year. vaccine: due for Tdap but declined today [facility] Surgical History Aortic valve replaced Hx of appendectomy Social History Housing: House Patient Tobacco Use Status: Never used Tobacco Tobacco use type: Cigarette e-Cigarette/Vaping Use: Never Used Second Hand Smoke Exposure: No service: No Current occupational status: employed Cognitive needs: No Hearing needs: No Vision needs: No Questionnaire PHQ-9 Over the last 2 weeks, how often have you been bothered by any of the following problems? 1. Little interest or pleasure in doing things: not at all 2. Feeling down, depressed, or hopeless: not at all 3. Trouble falling or staying asleep, or sleeping too much: not at all 4. Feeling tired or having little energy: several days 5. Poor appetite or overeating: not at all 6. Feeling bad about yourself - or that you are a failure or have let yourself or your family down: not at all 7. Trouble concentrating on things, such as reading the newspaper or watching television: not at all 8. Moving or speaking so slowly that other people could have noticed. Or the opposite - being so fidgety or restless that you have been moving around a lot more than usual: not at all 9. Thoughts that you would be better off or of hurting yourself in some way: not at all Total score: 1 Depression Screening Interpretation: Negative Depression Screening Done: Yes 85356 - PHQ-9 Billing: Yes Source: Developed by Drs. Keron Jacobsen, Kirsten June, Mayank Lagunas and colleagues, with an educational shady from [employer]. Thrive Questionnaire Date Thrive assessed: 01/11/25 I am a: Patient What is your living situation today?: I have a steady place to live Within the past 12 months, did the food you bought not last and you didn't have the money to get more?: Sometimes True Within the past 12 months, did you worry whether your food would run out before you got money to buy more?: Sometimes True Do you have trouble paying for medicines?: No Do you have trouble getting transportation to medical appointments?: No Do you have trouble paying your heating and electricity bill?: No Do you have trouble taking care of your child, family member or friend?: No Do you have trouble with day-to-day activities such as bathing, preparing meals, shopping, managing finances, etc.?: No Are you currently unemployed and looking for a job?: No Are you interested in more education?: No Please select the resources that you would like help with: None Currently or been in a relationship where the following occur: I choose not to answer THRIVE Score: 2 AUDIT C Alcohol Use Questionnaire (AUDIT-C) 1. How often do you have a drink containing alcohol?: Monthly or less 2. How many drinks containing alcohol do you have on a typical day when you are drinking?: 3 or 4 3. How often do you have six or more drinks on one occasion?: Less than monthly Total Score: 3 MIKAEL-7 AMB Questionnaire MIKAEL-7 Date MIKAEL - 7 assessed: 01/11/25 Feeling nervous, anxious, or on edge: 0 = Not at all Not being able to stop or control worryin = Not at all Worrying too much about different things: 0 = Not at all Trouble relaxin = Not at all Being so restless that it is hard to sit still: 0 = Not at all Becoming easily annoyed or irritable: 0 = Not at all Feeling afraid as if something awful might happen: 0 = Not at all Total MIKAEL-7 score (0-4 normal; 5-9 mild; 10-14 moderate; 15-21 severe): 0 Source: Developed by Drs. Keron Jacobsen, Kirsten June, Mayank Lagunas and colleagues, with an educational shady from [employer]. Review of Systems Const Denies body aches, Denies fatigue, Denies fever(s), Denies frequent falls, Denies headache(s) and Denies weakness Eyes Reports no additional complaints and Denies change in vision ENT Denies dysphagia, Denies dizziness, Denies facial pain, Denies headache(s), Denies nasal congestion and Denies odynophagia Card Denies chest pain, Denies syncope, Denies irregular heart rhythm, Denies leg edema, Denies lightheadedness and Denies dyspnea Resp Denies cough and Denies dyspnea GI Denies abdominal pain, Denies constipation, Denies dysphagia, Denies dyspepsia, Denies diarrhea, Denies nausea, Denies odynophagia and Denies vomiting Denies dysuria, Denies urinary frequency, Denies urinary hesitancy and Denies urinary urgency Musc Denies back pain and Denies myalgias Skin/Breast Reports system reviewed and no additional complaints, except as documented Neuro Denies dizziness, Denies syncope, Denies frequent falls, Denies headache(s) and Denies weakness Psych Reports no additional complaints Endo Denies fatigue Physical exam (Primary Care) Vital Signs: Last Vital Signs Temp 97.3 F 01/11/25 10:07 Pulse 74 01/11/25 10:07 BP 130/86 01/11/25 10:42 Pulse Ox 99 01/11/25 10:07 Oxygen Delivery Method Room Air 01/11/25 10:07 BMI result Body Mass Index 31.2 Tobacco/Smoking Status: Tobacco use Status Tobacco use date assessed 01/06/24 01/11/25 10:15 Patient Tobacco Use Status Never used Tobacco 01/11/25 10:15 Tobacco use type Cigarette 01/11/25 10:15 e-Cigarette/Vaping Use Never Used 01/11/25 10:15 PHQ-9: PHQ-9 Score PHQ-9: Total score 1 01/11/25 10:25 Depression Screening Interpretation: Negative Thrive Assessment: Date of Thrive Assessment Date Thrive assessed 01/11/25 01/11/25 10:15 Currently or been in a relationship where the following occur: I choose not to answer Const General: cooperative, healthy appearing, comfortable and no acute distress Orientation/consciousness: patient oriented x3 HENMT Head: Yes normocephalic Ears: hearing grossly normal bilaterally, external ears normal, TM's normal bilaterally and EAC's normal General nose exam: Normal external nose present Face and sinus: Yes normal facial exam and Yes sinuses nontender Mouth: Normal oral and palatal mucosa present and tongue normal Throat: Yes posterior oropharynx normal Eyes General: appearance normal, both eyes and all related structures Conjunctivae: conjunctivae normal Pupils: Equal, round and reactive pupils present EOM: EOMs intact bilaterally and No Nystagmus present Neck Neck: Yes normal visual inspection, Yes full ROM and Yes no lymphadenopathy Chest Chest palpation & inspection: normal inspection of the chest Resp Effort & Inspection: normal respiratory effort Auscultation: clear to auscultation bilaterally, no crackles, no rales, no rhonchi, no wheezes and breath sounds present Cardio Rate: regular rate Rhythm: regular rhythm Heart sounds: Murmur heart sound present Peripheral pulses: radial pulses present and dorsalis pedis present GI Inspection: Yes normal to inspection and No Abdominal wall edema Palpation (GI): Soft to palpation, not firm and nontender Auscultation: normal bowel sounds Rectal Exam - Male: Yes deferred General: Yes no CVA tenderness Back/Spine/Pelvis Back: no CVA tenderness Skin General skin exam: no rashes or lesions noted Neuro General: patient oriented x3 Cranial nerves: Yes Equal, round and reactive pupils present, Yes Midline tongue present, Yes Ability to bilaterally elevate shoulders present and No Nystagmus present Gait exam (Neuro): Normal gait present Extrem General: Yes normal to inspection, Yes full ROM, No no pedal edema and No edema Psych Speech and movement: Normal speech and movement present Affect: normal affect Insight: Good insight present (Psych) Judgement: Good judgement present (Psych) Coding Level of Care Code Est Pt Prev Care 18-39y(85053) Diagnoses Annual physical exam Z00.00 Aortic valve replaced Z95.2 Fatty liver K76.0 Cholelithiasis K80.20 Additional Codes PHQ-9 - 17369 - PHQ-9 Billing: Yes ([id number]) Assessment & Plan Assessment & Plan (1) Annual physical exam: Code(s): Z00.00 - Encounter for general adult medical examination without abnormal findings Category: Medical Plan: Patient is up-to-date on all recommended routine screenings and vaccinations for his age. Ordered for updated blood work and we will follow up in 1 year or sooner if new problems arise or pending blood work evaluation. Healthy diet and regular exercise is encouraged. (2) Aortic valve replaced: Comment: dr janine boone [facility] Code(s): Z95.2 - Presence of prosthetic heart valve Category: Surgical Plan: Patient continues to follow with [place] french folding machine operator and has undergone stress test and echocardiogram. He will continue to follow up with them every 6 months. (3) Fatty liver: Comment: Abdominal ultrasound 04/2024 Code(s): K76.0 - Fatty (change of) liver, not elsewhere classified Category: Medical Plan: Healthy diet and regular exercise is encouraged. Continue to monitor LFTs (4) Cholelithiasis: Comment: Abdominal ultrasound 04/2024 Code(s): K80.20 - Calculus of gallbladder without cholecystitis without obstruction Category: Medical Plan: Discussed dietary and lifestyle modification. Patient is asymptomatic at this time. Plan This note was constructed using voice recognition software. While every effort has been made to ensure accuracy and teacher home therapy, still areas may have been included sometimes these areas may affect the content or meeting of the given symptoms. Total time spent caring for the patient today was 30 minutes. This includes time spent before the visit reviewing the chart, time spent during the visit, and time spent after the visit and documentation. Patient was informed and verbally consented to the use of an ambient scribe for clinic note documentation during this visit. Patient was informed and verbally consented to the use of an ambient scribe for clinic note documentation during this visit. Orders: Orders TSH reflex Free T4 Today Z13.29 - Encounter for screening for other suspected endocrine disorder Vitamin B12 and Folate Today Z13.21 - Encounter for screening for nutritional disorder Vitamin D 25-OH Total Today Z13.21 - Encounter for screening for nutritional disorder Complete Blood Count Auto Diff Today Z13.0 - Encounter for screening for diseases of the blood and blood-forming organs and certain disorders involving the immune mechanism Comprehensive Met. Panel Today K76.0 - Fatty (change of) liver, not elsewhere classified, Z00.00 - Encounter for general adult medical examination without abnormal findings Lipid Panel Today Z13.1 - Encounter for screening for diabetes mellitus, Z13.220 - Encounter for screening for lipoid disorders Hemoglobin A1c Today E11.65 - Type 2 diabetes mellitus with hyperglycemia, Z13.1 - Encounter for screening for diabetes mellitus
[2025-01-11 10:42] VITALS: BP 130/86
--- OUTSIDE RECORDS SUMMARY | 2025-01-11 11:50 | XMS_ITS | Clinical Summary ---
Author Organization [facility] [address] [phone] Phone Care Team Providers Care Tongue Lining Stitcher Name Role Phone Unavailable Primary Care Provider [...] 2005 Hepatitis C screening 2010 Influenza vaccine 10/05/2024 Covid-19 vaccine series (2024- season) 2024 Tetanus adult (Td q 10,TDAP once) 07/11/2032 023 RSV Immunization (1 - 1-dose 75+ series) 11/20/2067 Meningococcal B Vaccine Aged Out No l onger eligible based on patient's age to complete this topic Meningococcal Vaccine Aged Out No erica rob eligible based on patient's age to complete this topic Pneumococcal Vaccine (2 - 49 years) Aged Out No longer eligible b ased on patient's age to complete this topic Insurance
--- OUTSIDE RECORDS SUMMARY | 2025-01-11 11:50 | XMS_ITS | Clinical Summary ---
Author Organization [facility] Address [address] [place] [phone] Care Team Providers Care Raise Drill Operator Name Role Phone Self, Referred Primary Care [...] so, obtain the minor's consent prior to disclosure.[facility]'s Allergies No known active allergies Medications aspirin 81 MG EC tabletIndications :Aneurysm of ascending aorta without rupture,Nonrheuma tic aortic valve insufficiency Take 1 tablet (81 mg) by mouth daily 30 tablet 11 5 04/27/19 26 Active MEtopROLOL (TOPROL-XL) 25 MG 24 hr tabletIndications :Aneurysm of ascending aorta without rupture,Nonrheuma tic aortic valve insufficiency Take 1 tablet (25 mg) by mouth daily 30 tablet 11 5 05/09/19 26 Active sacubitriL-valsar serrano (ENTRESTO) 24-26 mg tabletIndications :CHD (congenital heart disease) Take 1 tablet by mouth in the morning and 1 tablet before bedtime. 180 tablet 3 5 01/09/20 26 Active losartan (COZAAR) 25 MG tabletIndications :Aneurysm of ascending aorta without rupture,Nonrheuma tic aortic valve insufficiency Take 1 tablet (25 mg) by mouth daily 30 tablet 11 01/09/20 25 Discontinu ed(Alterna te therapy) Active Problems Patient Care Coordination No te Formatting of this note migh t be different from the original. Center for Care Coordination: Kassidy DAWSON, RN / Referred by [facility] Cardiology Department. Assisted patient is finding local dentists and primary care providers that accept his insurance. Problem Noted Date Diagnosed Date Aortic stenosis 11/09/2022 Encounters Date Type Department Care Team Description 01/08/2025 4:00 PM EST Office Visit [facility] Department of Cardiology [address] [place] [phone] Isael Carrillo MD CHD (congenital heart disease) 01/08/2025 2:32 PM EST Hospital Encounter [facility] Department of Cardiology [address] [place] [phone] CHD (congenital heart disease) from Last 3 Months Social History Tobacco Use Types Packs/Day Years Used Date Smoking Tobacco: Never Passive Smoke Exposure: Never Smokeless Tobacco: Never Tobacco Cessation:Counseling Given: Not Answered Sex and Gender Information Value Date Recorded [...] Mass Index 33.07 01/08/2025 3:14 PM EST Plan of Treatment Upcoming Encounters Date Type Department Care Team (Late st Contact Info) Description 07/09/2025 3:00 PM EDT Appointment [facility] Department of Cardiology [address] [place] [phone] 07/09/2025 4:00 PM EDT Office Visit [facility] Department of Cardiology [address] [place] [phone] Isael Carrillo MD [address] [place] [address] Health Maintenance Due Date Last Done Comments DTaP/TDAP/TD VACCINES (1 - Tdap) 11/20/1999 ADOLESCENT HIV SCREENING 2005 COVID-19 Vaccine (2023-2 5 season) 2024 INFLUENZA (#1) 2024 NIRSEVIMAB VACCINES UNDER 8 MONTHS Aged Out No longer eligible based on patient's age to complete this topic Procedures Procedure Name Priority Date/Time Associated Diagnosis Comments ECHO CONGENITAL 2D COMPLETE Routine 01/08/2025 4:27 PM EST CHD (congenital heart disease) EKG 12-LEAD Routine 01/08/2025 2:31 PM EST CHD (congenital heart disease) from Last 3 Months Results * ECHO CONGENITAL 2D COMPLETE (01/08/2025 [...] [facility] C[facility] TR max PG 27.3 mmHg [facility] CARD TR max moises 261.2 cm/sec [facility] CARD TV duyen diam(4ch) 3.5 cm [facility] CARD asc Ao max PG 4.5 mmHg [facility] CARD asc Ao max moises 105.6 cm/sec [facility] CARD asc Aorta(2D)(vs. BSA(Haycock)) 5.2 cm [facility] CARD desc Ao max PG 6 mmHg [facility] CARD desc Ao max moises 122 cm/sec [facility] CARD FS(MM) (vs. Age) Z-SCORE -1.54547 [facility] IVSd(MM)(vs. BSA([place]cock)) Z-SCORE -0.660025 [facility] IVSs(MM)(vs. BSA([facility])) Z-SCORE -0.33171 [facility] LV mass(C)d(MM) (vs.BSA (Haycock)) Z-SCORE 0.427379 [facility] LVIDd(MM)(vs. BSA([place]cock)) Z-SCORE 1.44105 [facility] [place] LVIDs(MM)(vs. BSA([place]cock)) Z-SCORE 2.81503 [facility] [place] LVPWd(MM)(vs. BSA(Haycock)) Z-SCORE -0.943977 [facility] Anatomical Region Laterality Modality Ultrasound 01/08/2025 [...] function. No pericardial effusion. Narrative Procedure Note oMhsen Mehta MD - 01/09/2025 IMPRESSION ECHOCARDIOGRAM on [...] ventricular function. No pericardial effusion. 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 : 1990 Requested By: ISAEL CARRILLO Order Number: [id number] Reading MD: Isael Carrillo Measurements Intervals [place] Rate: 70 P: 36 [place]: 168 QRS: 33 QRSD: 101 T: 37 QT: 401 QTc: 433 Electronically Signed On 01-08-2025 20:35:28 EST by Isael Carrillo Procedure Note Isael Carrillo MD - 01/08/2025 [facility] [address] [place] [address] Test Date: 2025-01-08 Pat Name: GABINO CANCHOLADepartment: CARD HTFD Room: Gender: Male 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 Grower: ELLIE : 1990 Requested By: ISAEL CARRILLO Order Number: [id number] Reading MD: Isael Carrillo Measurements Intervals [place] Rate: 70 P: 36 [place]: 168 QRS: 33 QRSD: 101 T: 37 QT: 401 QTc: 433 Electronically Signed On 01-08-2025 20:35:28 EST by Isael Carrillo IMPRESSION Normal Sinus Rhythm Normal axes, intervals, and voltages No pre-excitation QTc within normal limits us Isael Carrillo MD ECG ORDERABLES Final Result [facility] from Last 3 Months Insurance CHOICE PLUS Care Teams Raise Drill Operator Relationship Specialty Start Date End Date Self, Referred [address] [place] [address] PCP - General 11/26/22
--- OUTSIDE RECORDS SUMMARY | 2025-01-11 11:50 | XMS_ITS | Clinical Summary ---
Author Organization [facility] Address [address] [place] [address] Care Team Providers Care Belt Turner Name Role Phone Pcp, No Primary Care Provider UnavailChristopher Villanueva APRN Unavailable [phone] Luis Prakash MD Unavailable [phone] Ludwin Lopez MD Unavailable Unavaila ble Allergies No known active allergies Medications metoPROLOL SUCCINATE (TOPROL-XL) 25 MG 24 hr tabletIndication s:Aneurysm of ascending aorta without rupture Take 1 [...] AM EDT): Cardiology * pending apt Immunizations Immunization Administration Dates Next Due Tdap 07/11/2022 Family [...] Assigned at Male 07/11/2022 9:41 PM EDT Legal Sex Male 9:05 PM EDT Gender Identity Male 07/11/2022 9:41 PM EDT Sexual Orientation Heterosexual (straight) 07/11 9:41 PM EDT Last Filed Vital Signs Vital Sign Reading Time Taken Comments Blood Pressure 113/83 10/22/2022 8:35 AM EDT Pulse 84 10/22/2022 8:35 AM EDT Temperature 36.4 C (97.6 F) 07/19/2022 11:06 AM EDT Respiratory Rate 16 07/19/2022 11:06 AM EDT [...] - 19+ 3-dose series) 11/20/2011 Pneumococcal Vaccine: Pediat catie (0-5 Years) and At-Risk Patients (6 to 49 Years) (1 of 2 - PCV) 11/20/2011 Influenza Vaccine 10/05/2024 COVID-19 Vaccine (3 - 2024- season) 2024, 03/24/2021 DTaP/Tdap/Td Vaccines (2 - Td or Tdap) 07/11/2032 HPV Vaccines (No Doses Required) Completed Insurance [id number] [place] [address] [employer] [id number] [place] [address] Care Teams Belt Turner Relationship Specialty Start Date End Date Pcp, No PCP - General General Medicine 07/12/22 Christopher Coelho APRN [address] [place] [id number] Nurse Practitioner Cardiovascular Disease 07/19/22 Luis Prakash MD [address] [place] [address] Surgery, Orthopedic 07/19/22 Ludwin Lopez MD [address] [place] [address] Physician Cardiovascular Disease 12/15/22
--- OUTSIDE RECORDS SUMMARY | 2025-01-11 11:50 | XMS_ITS ---
Author Name [facility] Organization Unknown Results Test Name/Text Value Interpretation Date Range Source Hgb Bld-mCnc 16.9 g/dL Normal 04/20/2024 13 - 17.7 [facility] C Hct VFr Bld Auto 48.4 % Normal 04/20/2024 39 - 54 [facility] History of Medication Use Medication Directions Dispensed Refills Start Date End Date Stat us MEtopROLOL (TOPROL-XL) 25 MG 24 hr tablet Take 1 tablet (25 mg) by mouth daily 05/08/2024 active losartan (COZAAR) 25 MG tablet Take 1 tablet (25 mg) by mouth daily 04/27/2024 05/08/2024 active aspirin 81 MG EC tablet Take 1 tablet (81 mg) by mouth daily 04/27/2024 active gadobutroL (GADAVIST) injection Solution 20 mL 20 mL (rounded from 19.96 mL = 0.2 mL/kg 99.8 kg), Intravenous, Once, On Tue11/26/22 at 0900, For 1 dose, Radiology 11/26/2022 11/26/2022 completed metoPROLOL SUCCINATE (TOPROL-XL) 25 MG 24 hr tablet Take 1 tablet (25 mg total) by mouth daily. 10/22/2022 active metoPROLOL TARTRATE (LOPRESSOR) 50 MG tablet Take 1 tablet (50 mg total) by mouth 2 (two) times a day. Take one tablet 12 [address] before your [address] scan, and one tablet 1-2 hours before it. 07/22/2022 10/22/2022 active ciprofloxacin (CIPRO) 500 MG tablet Take 1 tablet (500 mg total) by mouth 2 (two) times a day. 07/12/2022 10/22/2022 active oxyCODONE (ROXICODONE) 5 MG immediate release tablet Take 1-2 tablets (5-10 mg total) by mouth Every 4 (four) to 6 (six) hours as needed for severe pain. Max Daily Amount: 60 mg 07/12/2022 10/22/2022 active acetaminophen (TYLENOL) 325 MG tablet Take 2 tablets (650 mg total) by mouth 4 times daily (every 6 hours) as needed for mild pain. 10/22/2022 active ibuprofen (MOTRIN) 200 MG tablet Take 2 tablets (400 mg total) by mouth 4 times daily (every 6 hours) as needed for mild pain. 10/22/2022 active No known medications No known medications active Problems Problem Status Onset Date Problem Type Date of Resolution Source Nonrheumatic aortic valve insufficiency active [facility]DiagnosisAct [facility] Aortic stenosis active 2022-11-[address] [facility] CHD (congenital heart disease) active EncounterDiagnosisAct [facility] Aneurysm of ascending aorta without rupture active [facility]DiagnosisAct [facility] Thoracic ascending aortic aneurysm active 2022-07-14 ProblemAct [facility] Aortic valve regurgitation active 2022-10-22 ProblemAct [facility] Open displaced fracture of distal phalanx of lesser toe of right foot with routine healing active 2022-07-31 ProblemAct [facility] Cardiomyopathy, unspecified type (HCC) [facility] Closed displaced fracture of shaft of right clavicle active 2022-07-19 [facility] Immunizations Vaccine Date Source Lot Number Status Tdap 07/11/2022 [facility] [address] [id number] completed Encounters Encounter Type Encounter Reason Primary Diagnosis Location Date Ambulatory Congenital malformation of heart, unspecified Congenital malformation of heart, unspecified [facility] [place] 01/08/2025 Ambulatory Congenital malformation of heart, unspecified Congenital malformation of heart, unspecified [facility] 01/08/2025 Ambulatory Congenital malformation of heart, unspecified Congenital malformation of heart, unspecified [facility] 05/08/2024 Ambulatory Nonrheumatic aortic (valve) insufficiency Nonrheumatic aortic (valve) insufficiency [facility] 04/20/2024 Ambulatory Congenital malformation of heart, unspecified Congenital malformation of heart, unspecified [facility] 02/07/2024 Ambulatory Nonrheumatic aortic (valve) insufficiency Nonrheumatic aortic (valve) insufficiency [facility] 02/07/2024 Ambulatory Congenital malformation of heart, unspecified Congenital malformation of heart, unspecified [facility] 02/02/2023 Ambulatory Aneurysm of the ascending aorta, without rupture Aneurysm of the ascending aorta, without rupture [facility] 12/17/2022 Ambulatory Aneurysm of the ascending aorta, without rupture Aneurysm of the ascending aorta, without rupture [facility] 11/26/2022 Ambulatory Aneurysm of the ascending aorta, without rupture Aneurysm of the ascending aorta, without rupture [facility] 11/09/2022 Ambulatory Aneurysm of the ascending aorta, without rupture Aneurysm of the ascending aorta, without rupture [facility] 11/09/2022 Ambulatory Nonrheumatic aortic (valve) stenosis Nonrheumatic aortic (valve) stenosis [facility] 11/09/2022 Ambulatory Aneurysm of the ascending aorta, without rupture Aneurysm of the ascending aorta, without rupture [facility] 10/22/2022 Ambulatory Displaced fractu re of shaft of right clavicle, subsequent encounter for fracture with routine healing [facility] 09/13/2022 Ambulatory Displaced fractu re of shaft of right clavicle, subsequent encounter for fracture with routine healing [facility] 09/13/2022 Ambulatory Displaced fracture of distal phalanx of right lesser toe(s), subsequent encounter for fracture with routine healing Displaced fracture of distal phalanx of right lesser toe(s), subsequent encounter for fracture with routine healing [facility] 08/13/2022 Ambulatory Displaced fracture of distal phalanx of right lesser toe(s), subsequent encounter for fracture with routine healing Displaced fracture of distal phalanx of right lesser toe(s), subsequent encounter for fracture with routine healing [facility] 07/30/2022 Ambulatory Displaced fracture of distal phalanx of right lesser toe(s), subsequent encounter for fracture with routine healing Displaced fracture of distal phalanx of right lesser toe(s), subsequent encounter for fracture with routine healing [facility] 07/23/2022 Ambulatory Chest pain, unspecified Chest pain, unspecified [facility] 07/22/2022 Ambulatory Nonrheumatic aortic (valve) stenosis Nonrheumatic aortic (valve) stenosis [facility] 07/21/2022 Ambulatory Encounter for preprocedural cardiovascular examination [facility] 07/20/2022 Ambulatory Displaced fractu re of shaft of right clavicle, initial encounter for closed fracture [facility] 07/19/2022 Emergency Fracture of unspecified part of unspecified clavicle, initial encounter for closed fracture Fracture of unspecified part of unspecified clavicle, initial encounter for closed fracture [facility] 07/11/2022 Care Team Organization Name Specialty Phone Email Start Date End Da te [facility] SELF Primary Care 01/09/2025 [facility] 07/01/2023 024 [facility] 03/27/2023 [facility] ([facility] 03/27/2023 [facility] 01/07/2023 024 [facility] ([facility] REFERRED SELF Primary Care 12/17/2022 [facility] Self,Referred Primary Care 11/26/2022 [facility] 11/09/2022 [facility] PCP,No Primary Care 07/23/2022 [facility] 07/12/2022 [facility] NO PCP Primary Care 07/11/2022 07/23/2022
--- OUTSIDE RECORDS SUMMARY | 2025-01-11 11:50 | XMS_ITS | Encounter Summary ---
Author Organization [facility] Address [address] [place] [address] Care Team Providers Care General Manager Road Production Name Role Phone Pcp, No Primary Care Provider Christopher Lebron APRN Unavailable [phone] Luis Prakash MD Unavailable [phone] Ludwin Lopez MD Unavailable Unavaila ble Encounter Details Date Type Department Care Team (Late st Contact Info) Description 07/22/2022 Scanned Document [facility] [place] [facility] [address] [place] [address] Provider, Generic Social History Tobacco Use [...] Narrative 07/22/2022 Ordered by an unspecified provider. us Generic Provider HX AMB PROCEDURES Final Result documented in this encounter Visit Diagnoses Not on filedocumented in this encounter Care Teams General Manager Road Production Relationship Specialty Start Date End Date Pcp, No PCP - General General Medicine 07/12/22 Christopher Coelho APRN [address] [place] [address] Nurse Practitioner Cardiovascular Disease 07/19/22 Luis Prakash MD [address] [place] [address] Surgery, Orthopedic 07/19/22 Ludwin Lopez MD [address] [place] [address] Physician Cardiovascular Disease 12/15/22 documented as of this encounter
== END 2025-01-11 10:45 | disposition home or self-care (01) ==
LOC: HO.HMCH 10:04
DX: Z00.00 Encounter for general adult medical examination without abnormal findings (principal); Z95.2 Presence of prosthetic heart valve; K76.0 Fatty (change of) liver, not elsewhere classified; K80.20 Calculus of gallbladder without cholecystitis without obstruction

== ENCOUNTER → 2025-01-11 10:03 | Outpatient (BNVA) | payer OTHER, SELFPAY | DX: Z00.00 Encounter for general adult medical examination without abnormal findings (principal); K76.0 Fatty (change of) liver, not elsewhere classified; K80.20 Calculus of gallbladder without cholecystitis without obstruction; E11.65 Type 2 diabetes mellitus with hyperglycemia; Z95.2 Presence of prosthetic heart valve | CPT/HCPCS: 96127 ==